=== PATIENT | male | born 1975 | race Caucasian/White ===

== ENCOUNTER 2022-05-08 13:43 | Emergency (ER) | payer BC ==
[~2022-05-08] VITALS: Ht 190.5 cm; Wt 127.3 kg
[2022-05-08 13:59] VITALS: BP 121/66
[2022-05-08] MEDS ORDERED: JANU50TA8 PO (14:03)
[2022-05-08] MEDS ORDERED: LOSA25TA13 PO (14:03)
[2022-05-08] MEDS ORDERED: ATOR1TAB21 PO (14:03)
[2022-05-08] MEDS ORDERED: METH-1165 PO (16:01)
== END 2022-05-08 16:06 | disposition home or self-care (01) ==
LOC: M ED 13:43
DX: S00.93XA Contusion of unspecified part of head, initial encounter (principal); S20.229A Contusion of unspecified back wall of thorax, initial encounter; S20.211A Contusion of right front wall of thorax, initial encounter; W17.89XA Other fall from one level to another, initial encounter; Y99.0 Civilian activity done for income or pay; J32.9 Chronic sinusitis, unspecified; K57.32 Diverticulitis of large intestine without perforation or abscess without bleeding; Z79.899 Other long term (current) drug therapy